=== PATIENT | male | born 1995 | race Caucasian/White ===

== ENCOUNTER 2017-12-20 17:19 | Emergency (ER) | payer OTHER ==
[2017-12-20] MEDS ORDERED: NIX CREME RINSE 1% 60 ML KIT TOP ×2 (20:00)
[2017-12-20] MEDS ORDERED: PERMETHRIN 5% CREAM 60 GM TOP ×2 (20:40)
[2017-12-20] MEDS: NS 1,000 ML IV ×2 (20:43)
[2017-12-20] MEDS: CLINDAMYCIN 900 MG in APPROPRIATE DILUENT 1 EA IV (20:43)
[2017-12-20 20:52] LABS: BASO % 0.2 % (0.0-1.0); EOS # 0.1 10^3/uL (0.0-0.50); EOS % 1.3 % (0.0-3.0); HEMATOCRIT 44.2 % (42.0-52.0); HEMOGLOBIN 15.5 g/dl (13.5-17.5); IMMATURE GRANULOCYTE % 0.3 % (0-3.0); LYMPH # 0.9 10^3/uL (1.5-6.5); LYMPH % 10.3 % (24.0-44.0); MEAN CORPUSCULAR HEMOGLOBIN 31.5 pg (27.0-33.0); MEAN CORPUSCULAR HGB CONC 35.1 g/dl (32.0-36.5); MEAN CORPUSCULAR VOLUME 89.8 fl (80.0-96.0); MONO # 0.7 10^3/uL (0.0-0.8); MONO % 7.7 % (0.0-5.0); NEUTROPHILS # 7.2 10^3/uL (1.8-7.7); NEUTROPHILS % 80.2 % (36.0-66.0); PLATELET COUNT, AUTOMATED 151 10^3/uL (150-450); RED BLOOD COUNT 4.92 10^6/uL (4.30-6.10); RED CELL DISTRIBUTION WIDTH 11.6 % (11.5-14.5)
[2017-12-20 21:08] LABS: ANION GAP 7 MEQ/L (8-16); BLOOD UREA NITROGEN 16 MG/DL (7-18); C REACTIVE PROTEIN QUANTITATIV 1.06 MG/DL (0.00-0.30); CALCIUM LEVEL 9.2 MG/DL (8.5-10.1); CARBON DIOXIDE LEVEL 28 MEQ/L (21-32); CHLORIDE LEVEL 103 MEQ/L (98-107); CREATININE FOR GFR 1.08 MG/DL (0.70-1.30); GLOMERULAR FILTRATION RATE > 60.0 (>60); GLUCOSE, FASTING 86 MG/DL (70-100); POTASSIUM SERUM 3.6 MEQ/L (3.5-5.1); SODIUM LEVEL 138 MEQ/L (136-145)
[2017-12-20 21:10] LABS: LACTIC ACID SEPSIS PROTOCOL 0.8 MMOL/L (0.4-2.0)
[2017-12-20 21:19] LABS: ERYTHROCYTE SEDIMENTATION RATE 3 mm/hr (0-15)
[2017-12-20] MEDS: PERMETHRIN 5% CREAM 60 GM TOP ×2 (22:22)
== END 2017-12-20 22:28 | disposition home or self-care (01) ==
LOC: M ED 17:19
DX: L03.124 Acute lymphangitis of left upper limb (principal); B86 Scabies; Z79.2 Long term (current) use of antibiotics
CPT/HCPCS: 83605